=== PATIENT | male | born 1925 | race Caucasian/White ===

== ENCOUNTER 2017-06-05 18:45 | Emergency (ER) | payer MEDICARE, BC ==
--- NOTE | 2017-06-05 19:34 | ER Document Report ---
ED General - General Chief Complaint: Fall Stated Complaint: WEAKNESS Time Seen by Provider: 06/05/17 19:22 Mode of Arrival: Medic Information source: Patient, Emergency Med Personnel - HPI Onset: Yesterday Onset/Duration: Gradual Quality of pain: No pain Associated symptoms: Chills - 3 DAYS AGO, Weakness, Other - FELL TODAY (WHILE WALKING). denies: Chest pain, Productive cough, Diarrhea, Fever, Nausea, Vomiting, Shortness of breath Exacerbated by: Denies Relieved by: Denies Similar symptoms previously: No Recently seen / treated by doctor: No - Related Data Allergies/Adverse Reactions: sulfamethoxazole [From ] Allergy (Verified 06/05/17 19:09) trimethoprim [From ] Allergy (Verified 06/05/17 19:09) Past Medical History - General Information source: Patient - Social History Smoking Status: Unknown if Ever Smoked Cigarette use (# per day): No Chew tobacco use (# tins/day): No Frequency of alcohol use: None Drug Abuse: None Lives with: Family Family History: Reviewed & Not Pertinent Patient has suicidal ideation: No Patient has homicidal ideation: No - Past Medical History Cardiac Medical History: Reports: Hx Hypercholesterolemia, Hx Hypertension Denies: Hx Heart Attack Pulmonary Medical History: Denies: Hx Asthma Neurological Medical History: Denies: Hx Cerebrovascular Accident, Hx Seizures Endocrine Medical History: Reports: None Renal/ Medical History: Reports: Hx Benign Prostatic Hyperplasia Malignancy Medical History: Reports None GI Medical History: Reports: None. Denies: Hx Hepatitis, Hx Hiatal Hernia, Hx Ulcer Musculoskeltal Medical History: Reports None Psychiatric Medical History: Reports: None Infectious Medical History: Denies: Hx Hepatitis Past Surgical History: Denies: Hx Open Heart Surgery, Hx Pacemaker Review of Systems - Review of Systems Constitutional: Chills, Weakness EENT: No symptoms reported Cardiovascular: No symptoms reported. denies: Chest pain, Palpitations, Heart racing, Dyspnea, Syncope Respiratory: No symptoms reported. denies: Short of breath Gastrointestinal: No symptoms reported. denies: Diarrhea, Nausea, Constipation , Poor appetite Genitourinary: No symptoms reported Musculoskeletal: No symptoms reported Skin: No symptoms reported Neurological/Psychological: See HPI Physical Exam - Vital signs Vitals: Resp BP Pulse Ox 18 169/96 H 96 06/05/17 19:54 06/05/17 19:54 06/05/17 19:54 Interpretation: Hypertensive. No: Tachycardic, Hypoxic, Tachypneic, Febrile - General General appearance: Appears well, Alert In distress: None - HEENT Head: Normocephalic Eyes: Normal. No: Pale conjunctiva, Periorbital ecchymosis Conjunctiva: Normal Pupils: PERRL Anterior chamber: Normal Ears: Normal Nasal: Normal Mouth/Lips: Normal Mucous membranes: Normal Pharynx: Normal Neck: Normal, Supple - Respiratory Respiratory status: No respiratory distress Breath sounds: Rales - FEW, LLL. No: Rhonchi, Wheezing - Cardiovascular Rhythm: Regular Murmur: Yes Systolic murmur grade 1-6: 1 - Abdominal Inspection: Normal Distension: No distension Bowel sounds: Normal - Back Back: Normal, Nontender - Extremities General upper extremity: Normal inspection General lower extremity: Normal inspection, Edema - TRACE BILAT. - Neurological Neuro grossly intact: Yes Cognition: Normal Orientation: AAOx4 - Psychological Associated symptoms: Normal affect, Normal mood - Skin Skin Temperature: Warm Skin Moisture: Dry Skin Color: Normal Skin Turgor: Elastic Course - Re-evaluation Re-evalutation: 06/05/17 21:23 Patient is subjectively unchanged. Denies any particular complaint at present time. Results of laboratory and radiographic studies discussed. Says he is under the care of Dr. Harmon in [place] for care of his kidneys. He is encouraged to increase his fluid intake and follow-up with his primary care provider and with Dr. Harmon. - Vital Signs Vital signs: Temp Pulse Resp BP Pulse Ox 23 H 160/68 H 98 06/05/17 20:01 06/05/17 20:01 06/05/17 20:01 - Laboratory Result Diagrams: 06/05/17 20:14 06/05/17 20:14 Laboratory results interpreted by me: 06/05/17 06/05/17 06/05/17 20:14 20:14 20:14 RBC 3.57 L Hgb 12.0 L Hct 35.7 L MCV 100 H MCH 33.6 H Plt Count 104 L Seg Neutrophils % 82.9 H Lymphocytes % 6.4 L BUN 50 H Creatinine 2.28 H Est GFR ( Amer) 33 L Est GFR (Non-Af Amer) 27 L Creatine Kinase 37 L NT-Pro-B Natriuret Pep 1690 H Albumin 3.1 L - EKG Interpretation by Me EKG shows normal: [place], Intervals. abnormal: Sinus rhythm, QRS Complexes, ST-T Waves - REPOL. ABNORMALITY Rhythm: A.Fib Voltage: Consistant with [facility] Discharge - Discharge Clinical Impression: Chronic renal insufficiency, stage III (moderate) Anemia Qualifiers: Anemia type: unspecified type Qualified Code(s): D64.9 - Anemia, unspecified Condition: Stable Disposition: HOME, SELF-CARE Instructions: Anemia ([facility]) Additional Instructions: CONTINUE YOUR USUAL MEDS. INCREASE YOUR FLUID INTAKE. YOU SHOULD DRINK AT LEAST 32 OUNCES (ONE QUART) OF WATER DURING EACH 24-HOUR DAY. FOLLOW UP WITH YOUR PRIMARY CARE PROVIDER IN 2-3 DAYS, CALL TOMORROW (MONDAY) FOR APPOINTMENT. RETURN TO [facility] IF YOU GET WORSE IN ANY WAY.
--- NOTE | 2017-06-05 20:02 | RADIOLOGY REPORT (SQ) ---
EXAM DESCRIPTION: CHEST SINGLE VIEW COMPLETED DATE/TIME: 06/05/2017 7:49 pm REASON FOR STUDY: WEAKNESS COMPARISON: None. EXAM PARAMETERS: NUMBER OF VIEWS: One view. TECHNIQUE: Single frontal radiographic view of the chest acquired. RADIATION DOSE: NA LIMITATIONS: None. FINDINGS: LUNGS AND PLEURA: No opacities, masses or pneumothorax. No pleural effusion. MEDIASTINUM AND HILAR STRUCTURES: No masses. Contour normal. HEART AND VASCULAR STRUCTURES: Cardiac silhouette is at the upper limits of normal in size. A tortuo us thoracic aorta is seen. BONES: No acute findings. HARDWARE: Dual chamber transvenous pacemaker is identified in position. OTHER: Some elevation of the left hemidiaphragm is seen. IMPRESSION: NO ACUTE RADIOGRAPHIC FINDING IN THE CHEST. TECHNICAL DOCUMENTATION: JOB ID: [id number]
[2017-06-05 20:31] LABS: ABSOLUTE LYMPHOCYTES (AUTO) 0.5 10^3/uL (0.5-4.7); ABSOLUTE MONOCYTES (AUTO) 0.9 10^3/uL (0.1-1.4); ABSOLUTE NEUT (AUTO) 7.1 10^3/uL (1.7-8.2); BASOPHILS % (AUTO) 0.2 % (0-2); EOSINOPHILS % (AUTO) 0.2 % (0-6); HEMATOCRIT 35.7 % (37.9-51.0); HGB HCT DIFFERENCE 0.3; LYMPHOCYTES % (AUTO) 6.4 % (13-45); MEAN CORPUSCULAR HEMOGLOBIN 33.6 pg (27.0-33.4); MEAN CORPUSCULAR HGB CONC 33.6 g/dL (32.0-36.0); MEAN CORPUSCULAR VOLUME 100 fl (80-97); MONOCYTES % (AUTO) 10.3 % (3-13); RED BLOOD COUNT 3.57 10^6/uL (4.35-5.55); RED CELL DISTRIBUTION WIDTH 13.5 % (11.5-14.0); SEGMENTED NEUTROPHILS % (AUTO) 82.9 % (42-78); WHITE BLOOD COUNT 8.5 10^3/uL (4.0-10.5)
[2017-06-05 20:34] LABS: APPEARANCE,URINE CLEAR; BILIRUBIN,URINE NEGATIVE (NEGATIVE); GLUCOSE, URINE NEGATIVE (NEGATIVE); KETONES,URINE NEGATIVE (NEGATIVE); LEUKOCYTE ESTERASE,URINE NEGATIVE (NEGATIVE); NITRITE,URINE NEGATIVE (NEGATIVE); PROTEIN,URINE NEGATIVE (NEGATIVE); URINE SPECIFIC GRAVITY 1.014; UROBILINOGEN,URINE NEGATIVE mg/dL (<2.0)
[2017-06-05 20:51] LABS: ALANINE AMINOTRANSFERASE 23 U/L (21-72); ALBUMIN 3.1 g/dL (3.5-5.0); ALKALINE PHOSPHATASE 74 U/L (38-126); ANION GAP 9 (5-19); ASPARTATE AMINO TRANSFERASE 19 U/L (17-59); BILIRUBIN,DIRECT 0.3 mg/dL (0.0-0.4); BILIRUBIN,TOTAL 0.6 mg/dL (0.2-1.3); BLOOD UREA NITROGEN 50 mg/dL (7-20); CALCIUM 8.7 mg/dL (8.4-10.2); CARBON DIOXIDE 25 mmol/L (22-30); CHLORIDE 105 mmol/L (98-107); CREATINE KINASE 37 U/L (55-170); CREATININE RESULT 2.28 mg/dL (0.52-1.25); GLUCOSE 107 mg/dL (75-110); POTASSIUM 4.1 mmol/L (3.6-5.0); SODIUM 139.3 mmol/L (137-145); TOTAL PROTEIN 6.3 g/dL (6.3-8.2)
[2017-06-05 21:01] LABS: CREATINE KINASE MB 0.7 ng/mL (<4.55); TROPONIN I 0.028 ng/mL
[2017-06-05 22:35] VITALS: BP 163/67
--- NOTE | 2017-06-06 08:00 | EKG REPORT ---
SEVERITY:- ABNORMAL ECG - ATRIAL FIBRILLATION [facility] WITH SECONDARY REPOLARIZATION ABNORMALITY : Confirmed by: Yg Parra MD 06-Jun-2017 07:59:15
== END 2017-06-05 22:16 | disposition home or self-care (01) ==
LOC: ER 18:45
DX: N18.3 Chronic kidney disease, stage 3 (moderate) (principal); D64.9 Anemia, unspecified; R53.1 Weakness; W19.XXXA Unspecified fall, initial encounter
CPT/HCPCS: 36415; 71010; 80053; 81001; 82550; 82553; 83880; 84484; 85025; 93005; 93010; 99285

== ENCOUNTER 2017-06-30 14:54 | Inpatient (IN) | payer MEDICARE, BC ==
--- NOTE | 2017-06-30 15:51 | ER Document Report ---
ED General - General Chief Complaint: Weakness Stated Complaint: WEAKNESS Time Seen by Provider: 06/30/17 15:41 Notes: Patient brought in from home by EMS. Reportedly week and running a fever for the past week. Patient says he is fallen about 4 or 5 times during this past week. He was unable to get up and needed assistance by his to get up from the fall this morning. Patient denies nausea vomiting or diarrhea. Denies urinary tract symptoms except for decreased urination. Does have a prostate condition for which he sees a urologist and is on Flomax. Denies any chest pain. Has had a cough with some phlegm produced. Fever off and on during this past week. - Related Data Allergies/Adverse Reactions: sulfamethoxazole [From ] Allergy (Verified 06/05/17 19:09) trimethoprim [From Junra] Allergy (Verified 06/05/17 19:09) Home Medications: Current Home Medications Brimonidine Tartrate [Alphagan P] 1 drop OU Q8 06/30/17 [History] Clopidogrel Bisulfate [Plavix 75 mg Tablet] 75 mg PO DAILY 06/30/17 [History] Fluticasone Propionate [Flonase Nasal [place] 50 Mcg/[place] 16 gm] 1 spray NASL Q12 06/30/17 [History] Furosemide [Lasix 20 mg Tablet] 20 mg PO DAILY 06/30/17 [History] Losartan Potassium [Cozaar 50 mg Tablet] 50 mg PO Q12 06/30/17 [History] Sotalol HCl [Betapace 80 mg Tablet] 80 mg PO DAILY 06/30/17 [History] Tamsulosin HCl [Flomax 0.4 mg Cap.sr] 0.8 mg PO DAILY 06/30/17 [History] Past Medical History - Social History Smoking Status: Never Smoker Chew tobacco use (# tins/day): No Frequency of alcohol use: None Drug Abuse: None Family History: Reviewed & Not Pertinent - Past Medical History Cardiac Medical History: Reports: Hx Hypercholesterolemia, Hx Hypertension Denies: Hx Heart Attack Pulmonary Medical History: Denies: Hx Asthma, Hx COPD Neurological Medical History: Denies: Hx Cerebrovascular Accident, Hx Seizures Renal/ Medical History: Reports: Hx Benign Prostatic Hyperplasia GI Medical History: Denies: Hx Hepatitis, Hx Hiatal Hernia, Hx Ulcer Infectious Medical History: Denies: Hx Hepatitis Past Surgical History: Reports: Hx Orthopedic Surgery - Left TKR Review of Systems - Review of Systems Notes: REVIEW OF SYSTEMS: CONSTITUTIONAL : See HPI regarding fever. EENT: Denies eye, ear, nose or mouth or throat pain or other symptoms. CARDIOVASCULAR: Denies chest pain. RESPIRATORY: Has a cough and some chest congestion. Denies shortness of breath , however. GASTROINTESTINAL: Denies abdominal pain or nausea, vomiting, or diarrhea. GENITOURINARY: Denies difficulty or painful urinating, urinary frequency, blood in urine. Only comments that his urine output is decreased recently. MUSCULOSKELETAL: Denies back or neck pain. Denies joint pain or swelling. SKIN: Denies rash or skin lesions. NEUROLOGICAL: Denies LOC or altered mental status. Denies headache. Denies sensory loss or motor deficits. ALL OTHER SYSTEMS REVIEWED AND NEGATIVE. Physical Exam - Vital signs Vitals: Resp BP Pulse Ox 23 H 129/60 H 95 06/30/17 15:12 06/30/17 15:12 06/30/17 15:12 Interpretation: Tachycardic, Febrile - Notes Notes: PHYSICAL EXAMINATION: GENERAL: Well-appearing, in no acute distress. Answers questions appropriately. HEAD: Atraumatic, normocephalic. ENT: oropharynx clear without exudates. Moist mucous membranes. NECK: Normal range of motion, supple. LUNGS: Breath sounds clear and equal bilaterally. HEART: Regular rate and rhythm without murmurs. ABDOMEN: Soft, nontender. No guarding or rebound. BACK: No tenderness throughout entire back. EXTREMITIES: Normal range of motion without pain. Negative Homans bilaterally. NEUROLOGICAL: Normal speech, normal gait. Normal sensory, motor, and reflex exams. Awake, alert, and oriented x3. Cranial nerves normal. PSYCH: Normal mood, normal affect. SKIN: Warm, dry, no rashes. Course - Re-evaluation Re-evalutation: 06/30/17 19:37 Patient's white count is normal, but he has a significant shift with over 90% segs and 7 bands. Chest x-ray is normal. Urinalysis does not look like an infection. Patient has no other likely sites as sources of infection. Discussed with Dr. Coyne who would admit the patient for rule out sepsis. - Vital Signs Vital signs: Temp Pulse Resp BP Pulse Ox 99.9 F 23 H 129/60 H 95 06/30/17 15:30 06/30/17 15:12 06/30/17 15:12 06/30/17 15:12 - Laboratory Result Diagrams: 06/30/17 17:14 06/30/17 17:15 Laboratory results interpreted by me: 06/30/17 06/30/17 06/30/17 15:58 15:58 17:14 RBC 3.17 L Hgb 10.5 L Hct 30.7 L Plt Count 134 L Seg Neuts % (Manual) 85 H Band Neutrophils % 7 H Lymphocytes % (Manual) 2 L Abs Neuts (Manual) 8.4 H Abs Lymphs (Manual) 0.2 L VBG pH 7.46 H VBG pCO2 31.6 L Potassium BUN Creatinine Est GFR ( Amer) Est GFR (Non-Af Amer) Glucose Total Protein Albumin Urine Blood SMALL H 06/30/17 17:15 RBC Hgb Hct Plt Count Seg Neuts % (Manual) Band Neutrophils % Lymphocytes % (Manual) Abs Neuts (Manual) Abs Lymphs (Manual) VBG pH VBG pCO2 Potassium 3.4 L BUN 29 H Creatinine 1.90 H Est GFR ( Amer) 41 L Est GFR (Non-Af Amer) 34 L Glucose 139 H Total Protein 6.1 L Albumin 2.8 L Urine Blood Discharge - Discharge Clinical Impression: Fever, Bandemia without diagnosis of specific infection Condition: Stable Disposition: ADMITTED OBSERVATION Admitting Provider: Hospitalist Unit Admitted: Telemetry
[2017-06-30 16:30] LABS: APPEARANCE,URINE CLEAR; BILIRUBIN,URINE NEGATIVE (NEGATIVE); GLUCOSE, URINE NEGATIVE (NEGATIVE); KETONES,URINE NEGATIVE (NEGATIVE); LEUKOCYTE ESTERASE,URINE NEGATIVE (NEGATIVE); NITRITE,URINE NEGATIVE (NEGATIVE); PROTEIN,URINE NEGATIVE (NEGATIVE); URINE SPECIFIC GRAVITY 1.008; UROBILINOGEN,URINE NEGATIVE mg/dL (<2.0)
[2017-06-30 16:32] LABS: VENOUS BLOOD BASE EXCESS -1.5 mmol/L; VENOUS BLOOD PCO2 31.6 mmHg (35-63); VENOUS BLOOD PH 7.46 (7.30-7.42)
--- NOTE | 2017-06-30 16:46 | RADIOLOGY REPORT (SQ) ---
EXAM DESCRIPTION: CHEST PA/LAT COMPLETED DATE/TIME: 06/30/2017 4:37 pm REASON FOR STUDY: Cough and fever. COMPARISON: 06/05/2017. EXAM PARAMETERS: NUMBER OF VIEWS: two views TECHNIQUE: Digital Frontal and Lateral radiographic views of the chest acquired. RADIATION DOSE: NA LIMITATIONS: none FINDINGS: LUNGS AND PLEURA: No opacities, masses or pneumothorax. No pleural effusion. MEDIASTINUM AND HILAR STRUCTURES: No masses or contour abnormalities. HEART AND VASCULAR STRUCTURES: Heart normal size. No evidence for failure. BONES: No acute findings. Degenerative changes in the spine. HARDWARE: Pacemaker. OTHER: No other significant finding. IMPRESSION: NO SIGNIFICANT RADIOGRAPHIC FINDING IN THE CHEST. TECHNICAL DOCUMENTATION: JOB ID: [id number] [employer]- All Rights Reserved
[2017-06-30 17:48] LABS: PROTHROMBIN TIME 14.8 SEC (11.4-15.4)
[2017-06-30 17:50] LABS: HEMATOCRIT 30.7 % (37.9-51.0); HEMOGLOBIN 10.5 g/dL (13.5-17.0); HGB HCT DIFFERENCE 0.8; MEAN CORPUSCULAR HEMOGLOBIN 33.1 pg (27.0-33.4); MEAN CORPUSCULAR HGB CONC 34.2 g/dL (32.0-36.0); MEAN CORPUSCULAR VOLUME 97 fl (80-97); RED BLOOD COUNT 3.17 10^6/uL (4.35-5.55); RED CELL DISTRIBUTION WIDTH 12.8 % (11.5-14.0); WHITE BLOOD COUNT 9.1 10^3/uL (4.0-10.5)
[2017-06-30 17:59] LABS: ALANINE AMINOTRANSFERASE 21 U/L (21-72); ALBUMIN 2.8 g/dL (3.5-5.0); ALKALINE PHOSPHATASE 76 U/L (38-126); ANION GAP 10 (5-19); ASPARTATE AMINO TRANSFERASE 17 U/L (17-59); BILIRUBIN,DIRECT 0.4 mg/dL (0.0-0.4); BILIRUBIN,TOTAL 0.6 mg/dL (0.2-1.3); BLOOD UREA NITROGEN 29 mg/dL (7-20); CALCIUM 8.8 mg/dL (8.4-10.2); CARBON DIOXIDE 24 mmol/L (22-30); CHLORIDE 106 mmol/L (98-107); GLUCOSE 139 mg/dL (75-110); POTASSIUM 3.4 mmol/L (3.6-5.0); SODIUM 140.3 mmol/L (137-145); TOTAL PROTEIN 6.1 g/dL (6.3-8.2)
[2017-06-30 18:16] LABS: BAND NEUTROPHILS % (MANUAL) 7 % (3-5); BASOPHILS % (MANUAL) 0 % (0-2); EOSINOPHILS % (MANUAL) 0 % (0-6); HYPOCHROMASIA SLIGHT; LYMPHOCYTES % (MANUAL) 2 % (13-45); POLYCHROMASIA SLIGHT; TOTAL CELLS COUNTED 100; TOXIC GRANULATION SLIGHT
[2017-06-30 18:17] LABS: OVALOCYTES SLIGHT; PLATELET CLUMPS PRESENT
--- NOTE | 2017-06-30 19:33 | EKG REPORT ---
SEVERITY:- BORDERLINE ECG - SINUS RHYTHM BORDERLINE PROLONGED QT INTERVAL : Confirmed by: Yg Parra MD 30-Jun-2017 19:32:33
[2017-06-30] MEDS ORDERED: CEFTRIAXONE 1 GM/D5W RTU 1 GM/50 ML RTUPB IV ONE (19:36)
--- NOTE | 2017-06-30 20:15 | RADIOLOGY REPORT (SQ) ---
EXAM DESCRIPTION: CT HEAD WITHOUT COMPLETED DATE/TIME: 06/30/2017 7:56 pm REASON FOR STUDY: Falling episodes. COMPARISON: None. TECHNIQUE: Axial images acquired through the brain without intravenous contrast. Images reviewed wi th bone, brain and subdural windows. Images stored on PACS. All CT scanners at this facility use dose modulation, iterative reconstruction, and/or weight based d osing when appropriate to reduce radiation dose to as low as reasonably achievable (ALARA). [facility]: Dose Right [facility]: CareDose [facility]: Dose Right [facility]: Teradose 4D [facility]: Smart [place] RADIATION DOSE: Up-to-date CT equipment and radiation dose reduction techniques were employed. CTDIv ol: 64.6 mGy. DLP: 1163 mGy-cm. mGy. LIMITATIONS: None. FINDINGS: VENTRICLES: Normal size and contour. CEREBRUM: No masses. No hemorrhage. No midline shift. No evidence for acute infarction. Normal gra y/white matter differentiation. No areas of low density in the white matter. CEREBELLUM: No masses. No hemorrhage. No alteration of density. No evidence for acute infarction. EXTRAAXIAL SPACES: No fluid collections. No masses. ORBITS AND GLOBE: No intra- or extraconal masses. Normal contour of globe without masses. CALVARIUM: No fracture. PARANASAL SINUSES: No fluid or mucosal thickening. SOFT TISSUES: No mass or hematoma. OTHER: No other significant finding. IMPRESSION: No acute intracranial findings. COMMENT: Quality ID # [id number]: Final reports with documentation of one or more dose reduction techniques (e.g., Automated exposure control, adjustment of the mA and/or kV according to patient size, use of iterative reconstruction technique) TECHNICAL DOCUMENTATION: JOB ID: [id number]- All Rights Reserved
[2017-06-30] MEDS ORDERED: PHARMACY COMMUNICATION ORDER MC SCH (21:00)
[2017-06-30 21:07] LABS: ADD ON TESTING BLD IN LAB ACKNOWLEDGE
[2017-06-30] MEDS ORDERED: PROMETHAZINE HCL 25 MG TABLET PO PRN (21:09)
[2017-06-30 21:32] LABS: MAGNESIUM 1.9 mg/dL (1.6-2.3)
--- NOTE | 2017-06-30 21:40 | PDOC H&P ---
History of Present Illness Admission Date/PCP: 06/30/17 19:45 Patient complains of: Fever, falls, generalized weakness History of Present Illness: ALY PENG is a 89 year old male with underlying prostatic hypertrophy, hypertension, atrial fibrillation, chronic kidney disease, arthritis, glaucoma, partial hearing loss, status post permanent pacemaker implant, who presents to the emergency room for evaluation of approximately a one-week history of intermittent subjective fever and shaking chills. He has fallen a number of times, without loss of consciousness. States he has struck his head at least one time. Simply becomes so weak he cannot stand up. Had to be assisted off the floor by the morning of admission. Chronic slightly productive cough, without recent change. No nausea vomiting, diarrhea or dysuria. Denies any "sore spot" anywhere on his body, but when physical exam revealed some mild inflammation warmth and tenderness along the dorsum of his right foot he does state over the last several days he has had some mild discomfort in the foot. Apparently this does happen on occasion in terms of increased discomfort at the site. Denies any trauma to the foot or insect bite. No sick contacts. Patient has been discussed with emergency room physician who evaluated the patient. Dictation via voice recognition software. Laboratory results are listed in [employer] and are reviewed. X-ray summary results are listed below, with full report(s) reviewed. . EKG reviewed and compared to prior tracing from June 05 of this year. Social history/personal habits: . Lives with . Retired. Has children. No use of alcohol tobacco or illicit drugs. Allergies/adverse reactions are listed in [employer] and are reviewed. Home medications initially autopopulated into [employer] may not accurately reflect patient's true medications, dosages, and/or frequencies. technical coordinator has reconciled medications. REVIEW OF SYSTEMS: Constitutional: See history and present illness. Eyes: Wears glasses. ENT: No swallowing problems or complaints. Partial hearing loss. Pulmonary: See history and present illness. Cardiovascular: No current complaints, including chest pain. Gastrointestinal: No current complaints, including nausea or vomiting. Skin: No current complaints, including rashes. Hematologic: Easy bruising. Neurologic: See history and present illness. Musculoskeletal: Joint pain from arthritis. See history and present illness. Psychiatric: Denies anxiety or depression. Endocrine: No current complaints, including polyuria. Genitourinary: No current complaints, including dysuria. PHYSICAL EXAMINATION: Neither height nor weight are recorded on the chart. Blood pressure 160/70. Pulse 63 and regular. 99% saturation on room air. Respirations are 19 and unlabored. Temperature 97.4. Temperature 99.9 initially in the emergency room. Well-nourished well-developed elderly male appearing approximately his stated age. Pleasant awake alert and cooperative. Mildly anxious, without agitation. Skin is warm and dry. No grossly obvious evidence of rash in areas of skin examined. No subcutaneous nodules palpated. ENT: Perhaps mildly hard of hearing to normal conversation. Tongue midline on protrusion pink and slightly moist. Eyes: No scleral icterus. Pupils equal and reactive to light at 4 mm. [place] conjunctivae. No raccoon eyes. Neck is supple and nontender to gentle active range of motion and palpation. Midline trachea. No palpable thyroid nodule mass enlargement or tenderness. Lymphatic: No palpable cervical or clavicular nodes. Neck and lymphatic exams limited by patient body habitus. Psychiatric: Reasonable insight into acute and chronic medical issues. Oriented to time location and why here. Sometimes takes a few seconds to gather his thoughts, so to speak, before answering questions, but does seem to answer basic questions appropriately. Lungs: Auscultation reveals clear and equal breath sounds bilaterally. No use of accessory respiratory muscles. Cardiovascular: Heart regular rate and rhythm, without gallop murmur or rub. No carotid or abdominal aortic bruits. No left ankle or pedal edema. Faintly palpable dorsalis pedis pulses. No right ankle edema. Scant soft tissue swelling on the dorsum of the right foot. Not overly remarkable. Abdomen:soft slightly distended nontender with positive bowel sounds. Unable to adequately evaluate abdomen for masses or organomegaly due to distention. Extremities: Feet are warm and dry. No calf tenderness to compression. No grossly obvious visual evidence of calf swelling. Gentle manipulation of lower extremities fails to reveal any obvious evidence of injury or instability to knees hips or ankles. Patient has very subtle inflammation warmth and slight tenderness on palpation on the dorsum of the right foot. No crepitus fluctuance or expressible discharge. No obvious skin entrance site. Neurologic: Moves upper extremities grossly normally. Patellar reflexes absent. Absent Babinski. Light touch is intact at feet. Dorsiflexion and plantarflexion of feet 5 / 5 and symmetric. Past Medical History Cardiac Medical History: Reports: Atrial Fibrillation, Hypertension Denies: Congestive Heart Failure, Coronary Artery Disease, DVT, Myocardial Infarction, Hyperlipidema, Pulmonary Embolism Pulmonary Medical History: Denies: Asthma, Chronic Obstructive Pulmonary Disease (COPD), Sleep Apnea EENT Medical History: Reports: Eyes - Glaucoma; wears glasses, Ears - Partial hearing loss Denies: Throat Neurological Medical History: Denies: Hemorrhagic CVA, Ischemic CVA, Seizures Endocrine Medical History: Denies: Diabetes Mellitus Type 1, Diabetes Mellitus Type 2, Hyperthyroidism, Hypothyroidism Renal/ Medical History: Reports: Chronic Kidney Disease GI Medical History: Denies: Cirrhosis, Gastroesophageal Reflux Disease, Hepatitis, Hiatal Hernia , Peptic Ulcer Disease Musculoskeltal Medical History: Reports: Arthritis Skin Medical History: Reports: None Psychiatric Medical History: Denies: Alcohol Dependency, Depression, General Anxiety Disorder, Substance Abuse, Tobacco Dependency Hematology: Denies: Anemia, Sickle Cell Disease Infectious Medical History: Denies: Hepatitis B, Hepatitis C, Methicillin-Resistant Staph Aureus Past Surgical History Past Surgical History: Reports: Orthopedic Surgery - Left TKR, Pacemaker, Tonsillectomy Social History Information Source: Patient, Emergency Med Personnel, [facility] Records Lives with: Spouse/Significant other Smoking Status: Unknown if Ever Smoked Frequency of Alcohol Use: None Drugs: None - Advance Directive Resuscitation Status: Full Code Surrogate healthcare decision maker:: Uncertain at this point in time Family History Family History: Reviewed & Not Pertinent Parental Family History Reviewed: Yes - father old age; mother of [facility] Children Family History Reviewed: Yes - healthy Sibling(s) Family History Reviewed.: Yes - Medication/Allergy Home Medications: Brimonidine Tartrate [Alphagan P] 1 drop OU Q8 06/30/17 Clopidogrel Bisulfate [Plavix 75 mg Tablet] 75 mg PO DAILY 06/30/17 Fluticasone Propionate [Flonase Nasal [place] 50 Mcg/[place] 16 gm] 1 spray NASL Q12 06/30/17 Furosemide [Lasix 20 mg Tablet] 20 mg PO DAILY 06/30/17 Losartan Potassium [Cozaar 50 mg Tablet] 50 mg PO Q12 06/30/17 Sotalol HCl [Betapace 80 mg Tablet] 80 mg PO DAILY 06/30/17 Tamsulosin HCl [Flomax 0.4 mg Cap.sr] 0.8 mg PO DAILY 06/30/17 Allergies/Adverse Reactions: sulfamethoxazole [From ] Allergy (Verified 06/05/17 19:09) trimethoprim [From Septra] Allergy (Verified 06/05/17 19:09) Physical Exam Vital Signs: Temp Pulse Resp BP Pulse Ox 97.7 F 74 17 130/62 H 99 06/30/17 20:55 06/30/17 20:55 06/30/17 20:52 06/30/17 20:52 06/30/17 20:55 Results Impressions: Chest X-Ray 06/30/17 15:43 IMPRESSION: NO SIGNIFICANT RADIOGRAPHIC FINDING IN THE CHEST. Head CT 06/30/17 19:37 IMPRESSION: No acute intracranial findings. Assessment & Plan - Diagnosis (1) Falls Qualifiers: Encounter type: initial encounter Qualified Code(s): W19.XXXA - Unspecified fall, initial encounter Is this a current diagnosis for this admission?: Yes Plan: Orthostatic vital signs every 4 hours while awake, starting in the morning. Strongly encouraged patient not to get out of bed without notifying staff to avoid a fall with injury. Physical therapy consult. (2) General weakness Is this a current diagnosis for this admission?: Yes (3) HTN (hypertension) Qualifiers: Hypertension type: essential hypertension Qualified Code(s): I10 - Essential (primary) hypertension Is this a current diagnosis for this admission?: Yes Plan: Resume home medications as appropriate once these have been determined and reviewed. (4) CKD (chronic kidney disease) Qualifiers: Chronic kidney disease stage: stage 3 (moderate) Qualified Code(s): N18.3 - Chronic kidney disease, stage 3 (moderate) Is this a current diagnosis for this admission?: Yes (5) Anemia Qualifiers: Anemia type: unspecified type Qualified Code(s): D64.9 - Anemia, unspecified Is this a current diagnosis for this admission?: Yes Plan: Follow-up CBC with differential. No need for transfusion at present time. (6) Thrombocytopenia Is this a current diagnosis for this admission?: Yes (7) Hypokalemia Is this a current diagnosis for this admission?: Yes Plan: Potassium replacement. Follow-up chemistry. (8) Cellulitis of right foot Is this a current diagnosis for this admission?: Yes Plan: Ancef. Blood cultures have been drawn. Knee high SCDs for DVT prophylaxis, along with subcutaneous heparin. Impression and plans were discussed with patient, who concurs. Time spent in evaluation and management of patient: 73 minutes. - Time Time Spent: Greater than 70 Minutes Medications reviewed and adjusted accordingly: Yes Anticipated discharge: Home Within: within 48 hours
[2017-06-30] MEDS ORDERED: (PENDING PHARMACY ID) (Brimonidine Tartrate [Alphagan P] 1 DROP) OU SCH (22:00)
[2017-06-30] MEDS ORDERED: POTASSIUM CHLORIDE 20 MEQ/15 ML UDCUP PO ONE (22:15)
[2017-06-30] MEDS: CEFAZOLIN 1 GM/D5W RTU 1 GM/50 ML RTUPB IV SCH (23:50)
[2017-06-30] MEDS: LOSARTAN POTASSIUM 50 MG TABLET PO SCH (23:51)
[2017-06-30] MEDS: FLUTICASONE NASAL SPRAY 50 MCG/SPRY 120 SPRAY/16 GM NASL SCH (23:53)
[2017-07-01] MEDS: CEFAZOLIN 1 GM/D5W RTU 1 GM/50 ML RTUPB IV SCH ×3 (06:14→21:51)
[2017-07-01 06:33] LABS: HEMATOCRIT 30.2 % (37.9-51.0); HEMOGLOBIN 10.3 g/dL (13.5-17.0); HGB HCT DIFFERENCE 0.7; MEAN CORPUSCULAR HEMOGLOBIN 33.3 pg (27.0-33.4); MEAN CORPUSCULAR HGB CONC 34.2 g/dL (32.0-36.0); MEAN CORPUSCULAR VOLUME 98 fl (80-97); RED CELL DISTRIBUTION WIDTH 12.8 % (11.5-14.0); WHITE BLOOD COUNT 3.3 10^3/uL (4.0-10.5)
[2017-07-01 06:36] LABS: ANION GAP 8 (5-19); BLOOD UREA NITROGEN 31 mg/dL (7-20); CALCIUM 8.8 mg/dL (8.4-10.2); CARBON DIOXIDE 24 mmol/L (22-30); CHLORIDE 108 mmol/L (98-107); CREATININE RESULT 1.69 mg/dL (0.52-1.25); GLUCOSE 91 mg/dL (75-110); POTASSIUM 4.1 mmol/L (3.6-5.0); SODIUM 140.2 mmol/L (137-145)
[2017-07-01 06:55] LABS: BAND NEUTROPHILS % (MANUAL) 1 % (3-5); BASOPHILS % (MANUAL) 0 % (0-2); EOSINOPHILS % (MANUAL) 0 % (0-6); LYMPHOCYTES % (MANUAL) 20 % (13-45); RBC MORPHOLOGY COMMENT NORMO-CYTIC/CHROMIC; TOTAL CELLS COUNTED 100
[2017-07-01] MEDS ORDERED: NORMAL SALINE 1000 ML 1,000 ML IV PRN (09:06)
--- NOTE | 2017-07-01 09:32 | PROGRESS NOTE E ---
Progress Note NAME: ALY PENG : 1925 AGE: 89Y DATE: 07/01/2017 ROOM: 427 SUBJECTIVE: Patient is currently sitting up in bed. He states that he still feels weak and dizzy whenever he stands. The patient denies any nausea or vomiting. He does admit to having a poor appetite. The patient has had no further fevers or chills since admission. No reported episodes of vomiting nor diarrhea. The patient has been afebrile. His blood pressures have been in a good range and the patient does not voice any other concerns at this time. REVIEW OF SYSTEMS: The rest of review of systems are negative. MEDICATIONS: Medications have been reviewed. OBJECTIVE: MEDICATIONS: Medications have been reviewed. OBJECTIVE: GENERAL: The patient is an 89-year-old male who is awake, alert. He is oriented to person, place, time, and situation. He is verbal, conversational, and does not appear to be in any acute distress. VITAL SIGNS FOLLOWS: Temperature is 97.6, pulse 68, respirations 20, blood pressure is 141/55, oxygen saturation is 97% on room air. SKIN: Warm and dry. No rash. He is not diaphoretic. HEENT: Pupils equal, round and reactive to light and accommodation. Conjunctivae are pink. NECK: No JVP. CARDIOVASCULAR: Heart is regular. There is no murmur or rub. CHEST: Clear, symmetrical, and unlabored. ABDOMEN: Soft, nontender, and nondistended. BACK: No CVA tenderness or sacral edema. EXTREMITIES: No clubbing or cyanosis. The patient does have trace bilateral lower extremity pitting edema. The patient's right lower extremity does have mild warmth and erythema. PSYCHIATRIC: Appropriate affect, pleasant mood. DIAGNOSTICS: Lab values are as follows: Hematology obtained on 07/01/2017: WBC is *------*, hemoglobin is 10.3, hematocrit is 30.2, platelet count is 133,000. Chemistry obtained on 07/01/2017: Sodium 140, potassium 4.1, chloride 108, carbon dioxide 24, BUN 31, creatinine *------*, glucose 91, calcium 8.8. IMPRESSION AND PLAN: 1. CELLULITIS OF THE RIGHT LOWER EXTREMITY. Could be contributing to the patient's overall symptoms. Will continue antibiotic coverage and follow. 2. ACUTE RENAL FAILURE. May be due to infectious process or poor p.o. intake. The patient denies any history of having kidney disease. The patient's creatinine was 1.9 on admission. With hydration, it came down to 1.69. Will gently hydrate the patient overnight and follow. 3. HYPOKALEMIA. This is mild and was repleted. 4. MALNUTRITION. The patient's albumin is quite low at 2.8, further suggestive of the patient's poor p.o. intake. Will liberalize the patient's diet and follow. 5. PANCYTOPENIA. Relatively mild. Will watch this closely and repeat in the a.m. May be further evidence of infectious process. 6. BENIGN PROSTATIC HYPERPLASIA. Will continue the patient's Flomax. 7. HYPERTENSION. Will continue the patient's home medications, but hold ARB, given the patient's renal function. 8. ATRIAL FIBRILLATION. The patient is currently in sinus rhythm and rate-controlled. Will continue Sotalol. DISPOSITION: The patient is a DO NOT RESUSCITATE/DO NOT INTUBATE, as the patient expresses a desire for natural . Pending patient's symptomatology and diagnostic findings, will reevaluate in the a.m. Time spent on this followup, including assessment, plan, physical examination, patient education, and review of previous and current records, is 35 minutes. DICTATING PHYSICIAN: CYNTHIA GARDUNO NP [id number] PHY#: [id number] ID: [id number] JOB#: [id number] ACCT: [id number] cc: >
[2017-07-01] MEDS ORDERED: SOTALOL HCL 80 MG TABLET PO SCH (10:00)
[2017-07-01] MEDS: DOCUSATE SODIUM 100 MG CAPSULE PO SCH ×2 (12:21→18:03)
[2017-07-01] MEDS: CLOPIDOGREL BISULFATE 75 MG TABLET PO SCH (12:22)
[2017-07-01] MEDS: FLUTICASONE NASAL SPRAY 50 MCG/SPRY 120 SPRAY/16 GM NASL SCH ×2 (12:22→21:51)
[2017-07-01] MEDS: LOSARTAN POTASSIUM 50 MG TABLET PO SCH ×2 (12:22→21:51)
[2017-07-01] MEDS: TAMSULOSIN HCL 0.4 MG CAP.SR.24H PO SCH (18:03)
[2017-07-01] MEDS: ACETAMINOPHEN 325 MG TABLET PO PRN (23:38)
[2017-07-02 05:01] LABS: HEMATOCRIT 30.5 % (37.9-51.0); HEMOGLOBIN 10.5 g/dL (13.5-17.0); MEAN CORPUSCULAR HEMOGLOBIN 33.4 pg (27.0-33.4); MEAN CORPUSCULAR HGB CONC 34.5 g/dL (32.0-36.0); MEAN CORPUSCULAR VOLUME 97 fl (80-97); RED BLOOD COUNT 3.15 10^6/uL (4.35-5.55); RED CELL DISTRIBUTION WIDTH 12.8 % (11.5-14.0); WHITE BLOOD COUNT 4.9 10^3/uL (4.0-10.5)
[2017-07-02 05:18] LABS: ANION GAP 9 (5-19); BLOOD UREA NITROGEN 30 mg/dL (7-20); CALCIUM 8.5 mg/dL (8.4-10.2); CARBON DIOXIDE 22 mmol/L (22-30); CHLORIDE 105 mmol/L (98-107); CREATININE RESULT 1.45 mg/dL (0.52-1.25); GLUCOSE 108 mg/dL (75-110); MAGNESIUM 1.7 mg/dL (1.6-2.3); POTASSIUM 4.1 mmol/L (3.6-5.0)
[2017-07-02] MEDS: CEFAZOLIN 1 GM/D5W RTU 1 GM/50 ML RTUPB IV SCH (05:26)
[2017-07-02] MEDS: FLUTICASONE NASAL SPRAY 50 MCG/SPRY 120 SPRAY/16 GM NASL SCH ×2 (09:17→22:10)
[2017-07-02] MEDS: LOSARTAN POTASSIUM 50 MG TABLET PO SCH (09:17)
[2017-07-02] MEDS: DOCUSATE SODIUM 100 MG CAPSULE PO SCH ×2 (09:18→17:10)
[2017-07-02] MEDS: CLOPIDOGREL BISULFATE 75 MG TABLET PO SCH (09:18)
[2017-07-02] MEDS ORDERED: VANCOMYCIN HCL 0 MG in DEXTROSE 5%-WATER 250 ML IV NR (11:45)
[2017-07-02] MEDS ORDERED: AMLODIPINE BESYLATE 5 MG TABLET PO ONE (12:30)
--- NOTE | 2017-07-02 15:22 | PROGRESS NOTE E ---
Progress Note NAME: ALY PENG : 1925 AGE: 89Y DATE: 07/02/2017 ROOM: 321 SUBJECTIVE: The patient is out of bed to the bedside chair. He states that he does feel much better today in comparison to yesterday and his dizziness overall has improved. The patient denies any nausea, vomiting or diarrhea. No shortness of breath. No chest pain, no fever or chills. The patient has been afebrile. His blood pressures have been in a good range and the patient does not voice any other concerns at this time. BRIEF HISTORY: The patient is an 89-year-old male that came to the emergency department due to falls and weakness. The patient had evidence of a mild cellulitis of the right lower extremity; however, that has resolved but the patient has been noted to be bacteremic. The patient clinically is much improved. REVIEW OF SYSTEMS: The rest of review of systems are negative. MEDICATIONS: Medications have been reviewed. OBJECTIVE: GENERAL: The patient is an 89-year-old male who is awake, alert and oriented to person, place, time, and situation. He is verbal, conversational, and does not appear to be in any acute distress. VITAL SIGNS FOLLOWS: Temperature is 98.0, pulse 85, respirations 18, blood pressure is 135/66, oxygen saturation is 99% on room air. SKIN: Warm and dry. No rash, not diaphoretic. HEENT: Pupils equal, round and reactive to light and accommodation. Conjunctivae are pink. NECK: No JVP. CARDIOVASCULAR: Heart is regular. There is no murmur or rub. CHEST: Clear, symmetrical, and unlabored. ABDOMEN: Soft, nontender, and nondistended. BACK: No CVA tenderness or sacral edema. EXTREMITIES: No clubbing or cyanosis. The patient does have trace bilateral lower extremity edema. Redness has resolved. PSYCHIATRIC: Appropriate affect, pleasant mood. DIAGNOSTICS: Lab values are as follows: Hematology obtained on 07/02/2017: WBCs are 4.9, hemoglobin is 10.5, hematocrit is 30.5, platelet count is 125,000. Chemistry obtained on 07/02/2017: Sodium 136, potassium 4.1, chloride 105, carbon dioxide 22, BUN 30, creatinine 1.45, glucose 108, calcium 8.5, magnesium is 1.7. IMPRESSION AND PLAN: 1. GRAM-POSITIVE BEA BACTEREMIA. Will start vancomycin. Will repeat blood culture in the a.m. and follow. The patient has no known etiology. The patient does sustain some scrapes and bumps along the way working around his home, may be a skin source of this. Will await repeat cultures and continue vancomycin in the meantime. 2. CELLULITIS OF THE RIGHT LOWER EXTREMITY. Appears to be completely resolved. 3. ACUTE RENAL FAILURE. The patient denies any history of any kidney disease. The patient's creatinine did improve with hydration down to 1.45; however, the patient now has some mild edema. Will have to hold fluids for now. Will continue to hold HERMINIO for now. 4. HYPOKALEMIA. This is mild and was repleted. 5. MALNUTRITION. The patient's albumin was quite low at 2.8. The patient does have admit to some poor oral intake. I have liberalized the patient's diet and will follow. 6. PANCYTOPENIA. Relatively mild. Appears a little improved today. May be due to his infectious process. 7. BENIGN PROSTATIC HYPERPLASIA. Will continue Flomax. 8. HYPERTENSION. The patient's HERMINIO/ARB is on hold. Will use Norvasc in the meantime. 9. ATRIAL FIBRILLATION. The patient is currently in sinus rhythm and rate-controlled. Will continue Sotalol. DISPOSITION: The patient is a DO NOT RESUSCITATE/DO NOT INTUBATE. Pending patient's symptomatology and diagnostic findings, will reevaluate in the a.m. Time spent on this followup, including assessment, plan, physical examination, and patient education is 25 minutes. DICTATING PHYSICIAN: CYNTHIA GARDUNO NP [id number] PHY#: [id number] ID: [id number] JOB#: [id number] ACCT: [id number] cc: >
[2017-07-02] MEDS: VANCOMYCIN HCL 1,000 MG in DEXTROSE 5%-WATER 250 ML IV SCH (15:45)
[2017-07-02] MEDS: TAMSULOSIN HCL 0.4 MG CAP.SR.24H PO SCH (17:11)
[2017-07-02] MEDS: AMLODIPINE BESYLATE 5 MG TABLET PO SCH (22:10)
[2017-07-03 05:29] LABS: HEMATOCRIT 30.2 % (37.9-51.0); HEMOGLOBIN 10.6 g/dL (13.5-17.0); HGB HCT DIFFERENCE 1.6; MEAN CORPUSCULAR HEMOGLOBIN 33.5 pg (27.0-33.4); MEAN CORPUSCULAR VOLUME 96 fl (80-97); RED BLOOD COUNT 3.16 10^6/uL (4.35-5.55); RED CELL DISTRIBUTION WIDTH 12.6 % (11.5-14.0)
[2017-07-03 05:31] LABS: WHITE BLOOD COUNT 2.8 10^3/uL (4.0-10.5)
[2017-07-03 05:34] LABS: ANION GAP 9 (5-19); BLOOD UREA NITROGEN 26 mg/dL (7-20); CALCIUM 8.8 mg/dL (8.4-10.2); CARBON DIOXIDE 23 mmol/L (22-30); CHLORIDE 106 mmol/L (98-107); CREATININE RESULT 1.43 mg/dL (0.52-1.25); GLUCOSE 105 mg/dL (75-110); MAGNESIUM 1.9 mg/dL (1.6-2.3); POTASSIUM 4.4 mmol/L (3.6-5.0)
[2017-07-03] MEDS: FLUTICASONE NASAL SPRAY 50 MCG/SPRY 120 SPRAY/16 GM NASL SCH ×2 (10:19→21:59)
[2017-07-03] MEDS: AMLODIPINE BESYLATE 5 MG TABLET PO SCH ×2 (10:19→22:01)
[2017-07-03] MEDS: DOCUSATE SODIUM 100 MG CAPSULE PO SCH ×2 (10:19→17:28)
[2017-07-03] MEDS: CLOPIDOGREL BISULFATE 75 MG TABLET PO SCH (10:19)
[2017-07-03] MEDS: ACETAMINOPHEN 325 MG TABLET PO PRN (10:20)
[2017-07-03] MEDS: VANCOMYCIN HCL 1,000 MG in DEXTROSE 5%-WATER 250 ML IV SCH (16:17)
[2017-07-03] MEDS: OXYCODONE-ACETAMINOPHEN 5-325 MG TABLET PO PRN (17:27)
[2017-07-03] MEDS: TAMSULOSIN HCL 0.4 MG CAP.SR.24H PO SCH (17:28)
--- NOTE | 2017-07-03 17:35 | PDOC PROGRESS REPORT ---
Subjective Progress Note for:: 07/03/17 Subjective:: Family at bedside who provided information most of his symptoms. Frequent falls for the past several days. No recent instrumentation or Crisostomo catheter implant. Likewise there is no indwelling catheter in terms of Port-A-Cath or PICC line. Patient however has a permanent pacemaker. Cultures of the blood grew gram-positive cocci on 2 sets. Repeat so far is pending. No infiltrate on chest x-ray noted. No dysuria urgency or frequency. Urine culture remain negative. He does complain of pain on the right foot. He had fallen several times at home however. Physical Exam Vital Signs: Temp Pulse Resp BP Pulse Ox 99.3 F 88 19 154/61 H 99 07/03/17 14:47 07/03/17 14:47 07/03/17 14:47 07/03/17 14:47 07/03/17 14:47 Intake & Output 07/02/17 07/03/17 07/04/17 06:59 06:59 06:59 Intake Total 1418 1458 358 Output Total 1425 2250 200 Balance -7 -792 158 Weight 79.5 kg 77 kg General appearance: PRESENT: no acute distress, cooperative Head exam: PRESENT: normocephalic Eye exam: PRESENT: EOMI Mouth exam: PRESENT: moist, neck supple Neck exam: ABSENT: JVD Respiratory exam: PRESENT: clear to auscultation jaren. ABSENT: rhonchi, wheezes Cardiovascular exam: PRESENT: RRR. ABSENT: diastolic murmur, systolic murmur, tachycardia GI/Abdominal exam: PRESENT: soft. ABSENT: diminished bowel sounds, tenderness Extremities exam: PRESENT: pedal edema - Right more than the left, other - Right braider tender to touch and warm to touch compared to the left Neurological exam: PRESENT: alert, awake, oriented to situation Skin exam: PRESENT: dry, warm. ABSENT: cyanosis Results Laboratory Results: 07/03/17 05:08 07/03/17 05:08 07/03/17 07/03/17 05:08 05:08 WBC 2.8 L D RBC 3.16 L Hgb 10.6 L Hct 30.2 L MCV 96 MCH 33.5 H MCHC 35.0 RDW 12.6 Plt Count 138 L Sodium 138.0 Potassium 4.4 Chloride 106 Carbon Dioxide 23 Anion Gap 9 BUN 26 H Creatinine 1.43 H Est GFR ( Amer) 56 L Est GFR (Non-Af Amer) 47 L Glucose 105 Calcium 8.8 Magnesium 1.9 Impressions: Chest X-Ray 06/30/17 15:43 IMPRESSION: NO SIGNIFICANT RADIOGRAPHIC FINDING IN THE CHEST. Head CT 06/30/17 19:37 IMPRESSION: No acute intracranial findings. Assessment & Plan - Time Time Spent with patient: 25-34 minutes - Plan Summary Plan Summary: Obtain x-ray of the right foot. Follow repeat cultures. If positive underlying pacemaker implant may be infected as well. May eventually need to be transferred to a tertiary facility if that is the case. In the meantime continue current vancomycin and follow identity of the organism.
--- NOTE | 2017-07-03 19:46 | RADIOLOGY REPORT (SQ) ---
EXAM DESCRIPTION: FOOT RIGHT 2 VIEWS COMPLETED DATE/TIME: 07/03/2017 7:15 pm REASON FOR STUDY: pain and swelling D64.9 ANEMIA, UNSPECIFIED COMPARISON: None. NUMBER OF VIEWS: Three views. TECHNIQUE: AP, lateral and oblique radiographic images acquired of the right foot. LIMITATIONS: None. FINDINGS: MINERALIZATION: Normal. BONES: There are fractures involving the proximal phalanges of the 4th and 5th digits. A lucency is identified in the distal end of the 1st metatarsal which I cannot exclude as a fracture line. JOINTS: Hallux valgus is identified. There are subluxations at the level of the MTP joints. SOFT TISSUES: No soft tissue swelling. No foreign body. OTHER: Plantar spurring is identified. IMPRESSION: There are fractures involving the proximal phalanges of the 4th and 5th digits. The margo ency is identified in the distal end of the 1st metatarsal which I cannot exclude as a fracture line. Other findings as noted above TECHNICAL DOCUMENTATION: JOB ID: [id number] [employer]- All Rights Reserved
[2017-07-04] MEDS: CLOPIDOGREL BISULFATE 75 MG TABLET PO SCH (10:40)
[2017-07-04] MEDS: DOCUSATE SODIUM 100 MG CAPSULE PO SCH ×2 (10:40→17:05)
[2017-07-04] MEDS: AMLODIPINE BESYLATE 5 MG TABLET PO SCH ×2 (10:41→22:00)
[2017-07-04] MEDS: FLUTICASONE NASAL SPRAY 50 MCG/SPRY 120 SPRAY/16 GM NASL SCH ×2 (10:41→22:01)
--- NOTE | 2017-07-04 11:29 | PDOC PROGRESS REPORT ---
Subjective Progress Note for:: 07/04/17 Subjective:: The patient is resting in his bed. He states he still continues to feel quite weak. He states about 5 weeks ago that he developed increasing weakness and falls. He developed fevers and night sweats at this time. At the moment the patient has gram-positive bacteremia. The source is a little unclear but may be from a cellulitis in the right leg. The sensitivities and organism are not back as of the time of this dictation. Overall he states that he did have some chills overnight. He does not think he is running a fever today. He has had no chest pain or heart palpitations. He has had no nausea, vomiting or diarrhea. He states he is having normal bowel movements. He is not having any abdominal pain. He has no dysuria, frequency or hematuria. He states that he is having significant pain in his right foot. X-ray yesterday confirmed some fractured toes. He also is having some right calf tenderness. Physical Exam Vital Signs: Temp Pulse Resp BP Pulse Ox 98.1 F 77 16 162/65 H 99 07/04/17 07:20 07/04/17 07:20 07/04/17 07:20 07/04/17 07:20 07/04/17 07:20 Intake & Output 07/03/17 07/04/17 07/05/17 06:59 06:59 06:59 Intake Total 1458 1979 Output Total 2250 1225 Balance -792 754 Weight 77 kg 77.5 kg General appearance: PRESENT: no acute distress, cooperative, other - He has a tremor Head exam: PRESENT: atraumatic, normocephalic Mouth exam: PRESENT: moist, tongue midline Respiratory exam: PRESENT: clear to auscultation jaren. ABSENT: accessory muscle use, crackles, rhonchi, wheezes Cardiovascular exam: PRESENT: RRR, +S1, +S2, systolic murmur GI/Abdominal exam: PRESENT: normal bowel sounds, soft. ABSENT: organolmegaly, tenderness Rectal exam: PRESENT: deferred Extremities exam: PRESENT: calf tenderness - The patient has edema in his, other - The patient has edema in his right foot that extends all the way up above his knee. He is tender on the posterior calf. Neurological exam: PRESENT: alert, altered, awake, oriented to person, oriented to time, oriented to situation, CN II-XII grossly intact Psychiatric exam: PRESENT: appropriate affect Skin exam: PRESENT: dry, warm Results Laboratory Results: 07/03/17 05:08 07/03/17 05:08 Impressions: Chest X-Ray 06/30/17 15:43 IMPRESSION: NO SIGNIFICANT RADIOGRAPHIC FINDING IN THE CHEST. Head CT 06/30/17 19:37 IMPRESSION: No acute intracranial findings. Foot X-Ray 07/03/17 00:00 IMPRESSION: There are fractures involving the proximal phalanges of the 4th and 5th digits. The lucency is identified in the distal end of the 1st metatarsal which I cannot exclude as a fracture line. Other findings as noted above Assessment & Plan - Diagnosis (1) Gram-positive bacteremia Plan: The patient had 2 out of 2 blood cultures positive for gram-positive cocci in chains. Repeat blood cultures were obtained yesterday and are negative to date. We do not have the organism or the final sensitivity results. He currently is on IV vancomycin. This is day #3 of treatment. At this point the source is somewhat unclear. He did have a 2D echocardiogram performed. The results have not yet been read. (2) Cellulitis of right foot Is this a current diagnosis for this admission?: Yes Plan: It is a little unclear if this is a true cellulitis. Currently on day #3 of IV vancomycin. (3) Foot fracture, right Plan: The patient had an x-ray of his foot yesterday which revealed fractures in the fourth and fifth toe as well as a possible distal first metatarsal fracture. Going to get orthopedic surgery to see the patient. He may need a postop shoe or boot for ambulation. He does have significant swelling in the foot that extends up above his knee. He has calf tenderness. I am also going to obtain venous Dopplers of his lower extremities as well. (4) Acute on chronic renal failure Plan: Likely secondary to dehydration. Improving (5) Atrial fibrillation Qualifiers: Atrial fibrillation type: unspecified Qualified Code(s): I48.91 - Unspecified atrial fibrillation Is this a current diagnosis for this admission?: Yes Plan: Continue sotalol. Currently in a sinus rhythm and rate controlled. Currently not on anticoagulation I suspect due to his fall risk. (6) Pancytopenia Plan: Of undetermined significance at this point. We will get a CBC on the patient in the morning. (7) History of cardiac pacemaker in situ Is this a current diagnosis for this admission?: Yes Plan: No issues at this point. We will leave the patient on a remote monitor. (8) HTN (hypertension) Qualifiers: Hypertension type: essential hypertension Qualified Code(s): I10 - Essential (primary) hypertension Is this a current diagnosis for this admission?: Yes Plan: Adequately controlled on current regimen. (9) BPH (benign prostatic hyperplasia) Qualifiers: Lower urinary tract symptom presence: unspecified whether lower urinary tract symptoms present Qualified Code(s): N40.0 - Benign prostatic hyperplasia without lower urinary tract symptoms Is this a current diagnosis for this admission?: Yes Plan: Continue Flomax (10) Hypokalemia Plan: Repleted and resolved - Time Time Spent with patient: 25-34 minutes - Inpatient Certification Medical Necessity: Need Close Monitoring Due to Risk of Patient Decompensation - Inpatient hospitalization remains necessary. The patient has bacteremia of unknown source. Further workup and parenteral antibiotics are needed., Need for IV Antibiotics
[2017-07-04] MEDS: VANCOMYCIN HCL 1,000 MG in DEXTROSE 5%-WATER 250 ML IV SCH (16:59)
[2017-07-04] MEDS: TAMSULOSIN HCL 0.4 MG CAP.SR.24H PO SCH (17:05)
[2017-07-04] MEDS: OXYCODONE-ACETAMINOPHEN 5-325 MG TABLET PO PRN (17:05)
[2017-07-04] MEDS ORDERED: VANCOMYCIN HCL 1,000 MG in DEXTROSE 5%-WATER 250 ML IV ONE (20:00)
[2017-07-05 05:03] LABS: ABSOLUTE LYMPHOCYTES (AUTO) 0.7 10^3/uL (0.5-4.7); ABSOLUTE MONOCYTES (AUTO) 0.8 10^3/uL (0.1-1.4); ABSOLUTE NEUT (AUTO) 2.8 10^3/uL (1.7-8.2); BASOPHILS % (AUTO) 0.3 % (0-2); HEMATOCRIT 28.8 % (37.9-51.0); HEMOGLOBIN 9.6 g/dL (13.5-17.0); LYMPHOCYTES % (AUTO) 16.3 % (13-45); MEAN CORPUSCULAR HEMOGLOBIN 32.4 pg (27.0-33.4); MEAN CORPUSCULAR HGB CONC 33.4 g/dL (32.0-36.0); MEAN CORPUSCULAR VOLUME 97 fl (80-97); MONOCYTES % (AUTO) 18.8 % (3-13); RED BLOOD COUNT 2.97 10^6/uL (4.35-5.55); RED CELL DISTRIBUTION WIDTH 13.1 % (11.5-14.0); SEGMENTED NEUTROPHILS % (AUTO) 63.6 % (42-78); WHITE BLOOD COUNT 4.4 10^3/uL (4.0-10.5)
[2017-07-05 05:17] LABS: ANION GAP 7 (5-19); BLOOD UREA NITROGEN 26 mg/dL (7-20); CALCIUM 8.5 mg/dL (8.4-10.2); CARBON DIOXIDE 24 mmol/L (22-30); CHLORIDE 105 mmol/L (98-107); CREATININE RESULT 1.67 mg/dL (0.52-1.25); GLUCOSE 96 mg/dL (75-110); PHOSPHORUS 3.8 mg/dL (2.5-4.5); POTASSIUM 4.2 mmol/L (3.6-5.0); SODIUM 136.3 mmol/L (137-145)
[2017-07-05] MEDS: ACETAMINOPHEN 325 MG TABLET PO PRN (07:39)
[2017-07-05 08:42] VITALS: BP 146/59
[2017-07-05] MEDS: FLUTICASONE NASAL SPRAY 50 MCG/SPRY 120 SPRAY/16 GM NASL SCH (09:46)
[2017-07-05] MEDS: DOCUSATE SODIUM 100 MG CAPSULE PO SCH (09:47)
[2017-07-05] MEDS: AMLODIPINE BESYLATE 5 MG TABLET PO SCH (09:47)
[2017-07-05] MEDS: CLOPIDOGREL BISULFATE 75 MG TABLET PO SCH (09:47)
--- NOTE | 2017-07-05 10:40 | PDOC DISCHARGE SUMMARY ---
General - Admit/Disc Date/PCP Admission Date/Primary Care Provider: 07/01/17 09:07 disc jockey: Dr Servin in [place] Out[facility] Consultant: Dr. Phu Ulloa Discharge Date: 07/05/17 - Discharge Diagnosis (1) Gram-positive bacteremia Summary: The patient's blood cultures were positive in 2 out of 2 bottles for strep viridans. Currently he is receiving vancomycin. This is day #4 of treatment. The sensitivities from his blood cultures revealed that vancomycin has an HALLEY of 1. Repeat blood cultures are negative at 48 hours. The source of the bacteremia is somewhat unclear. The patient had some mild erythema in his right foot and leg at the time of admission. He had significant swelling but was found to have a toe fractures as well as a metatarsal fracture. He was treated initially for cellulitis although this was not real impressive. There are concerns that the patient may have subacute endocarditis. We do not have the capability of performing a transesophageal echocardiogram here at this facility. He has been accepted at [facility] where his primary hot dipper is agreed to perform a WEST. We certainly appreciate their assistance. (2) Cellulitis of right foot Is this a current diagnosis for this admission?: Yes Summary: Currently on IV vancomycin day #4. Again it was unclear whether this was a true cellulitis versus erythema and swelling from his fractures. (3) Foot fracture, right Summary: The patient has fractures in the fourth and fifth toes of his right foot. He also has a possible distal first metatarsal fracture. Will defer to the hospitalist at [facility] on whether to get orthopedic surgery to see the patient. He certainly needs possibly a postop shoe or boot so that he can ambulate with physical therapy so as not to lose his mobility. (4) Acute on chronic renal failure Summary: It was reported at admission that the patient had acute on chronic renal failure. Actually I have no outpatient records and I am not sure what his baseline creatinine is. Dr. Ulloa may have records in his system. I suspect the patient may be at his baseline. On the day of transfer his creatinine is 1.6 (5) Atrial fibrillation Is this a current diagnosis for this admission?: Yes Summary: Continue sotalol. He currently is in a sinus rhythm and rate controlled. Currently not on anticoagulant anticoagulation I suspect due to his fall risk. (6) Pancytopenia Summary: Improving. The patient's white blood cell count and platelet levels have normalized today. This was likely secondary to his acute illness. He does have a oracle engineer that he follows with in [place]. I do not have records from [facility] but I believe he has had issues with pancytopenia in the past. (7) History of cardiac pacemaker in situ Is this a current diagnosis for this admission?: Yes Summary: No issues during this hospitalization (8) HTN (hypertension) Is this a current diagnosis for this admission?: Yes Summary: Continue amlodipine 5 mg daily and losartan 50 mg every 12 hours. (9) BPH (benign prostatic hyperplasia) Is this a current diagnosis for this admission?: Yes Summary: Continue Flomax 0.8 mg p.o. daily - Additional Information Resuscitation Status: Full Code Discharge Diet: Cardiac Discharge Activity: Activity As Tolerated Home Medications: Brimonidine Tartrate [Alphagan P] 1 drop OU Q8 06/30/17 Clopidogrel Bisulfate [Plavix 75 mg Tablet] 75 mg PO DAILY 06/30/17 Fluticasone Propionate [Flonase Nasal [place] 50 Mcg/[place] 16 gm] 1 spray NASL Q12 06/30/17 Furosemide [Lasix 20 mg Tablet] 20 mg PO DAILY 06/30/17 Losartan Potassium [Cozaar 50 mg Tablet] 50 mg PO Q12 06/30/17 Sotalol HCl [Betapace 80 mg Tablet] 80 mg PO DAILY 06/30/17 Tamsulosin HCl [Flomax 0.4 mg Cap.sr] 0.8 mg PO DAILY 06/30/17 History of Present Illness History of Present Illness: ALY PENG is a 89 year old male who presented to the emergency room with increasing falls, weakness and fever. Hospital Course Hospital Course: The patient is an extremely pleasant and active 89-year-old male. His past medical history is significant for atrial fibrillation, status post permanent pacemaker, chronic kidney disease, benign prostatic hypertrophy and hypertension. His hot dipper is Dr. Ulloa in [facility]. He presented to the emergency room with generalized weakness which is been worsening, multiple falls and fevers. 6 weeks prior to admission the patient states that he began getting weak. He started having low-grade fever and chills at home and started having some falls. Over the past several weeks his weakness worsened and his fevers continued to get higher. He had become so weak that he was unable to stand up and he was brought to the emergency room for further evaluation. He had a fall prior to at home the day of admission. In the emergency room he was found to have fever. His right foot was swollen and it extended up his leg about to the knee. There was some very mild erythema as well. X-ray revealed fracture of the fourth and fifth toes as well as a possible fracture of the distal first metatarsal. He was admitted to the hospital and started on IV antibiotic therapy for a possible cellulitis. Blood cultures obtained at the time of admission were ultimately positive for strep viridans. He did have a 2D echocardiogram performed at this facility however this was 2 days ago and has not been read due to the on-call hot dipper being out on sick leave. It is felt at this point that the patient needs to have a transesophageal echocardiogram performed and we do not have that capability here at this facility. I did speak to his primary hot dipper today who is agreeable to performing a WEST at [facility]. He requested admission under the hospitalist service so they could treat his multiple medical issues. Dr. Telma Alexander has graciously accepted the patient in transfer and in fact he already has a bed available. He will be transition to [facility] today in stable condition. Of note I will defer to Dr. Alexander on whether to obtain orthopedic evaluation. Physical Exam Vital Signs: Temp Pulse Resp BP Pulse Ox 98.3 F 79 18 146/59 H 97 07/05/17 07:18 07/05/17 07:18 07/05/17 07:18 07/05/17 07:18 07/05/17 07:18 Intake & Output 07/04/17 07/05/17 07/06/17 06:59 06:59 06:59 Intake Total 1979 1609 Output Total 1225 1450 Balance 754 159 Weight 77.5 kg 78.2 kg General appearance: PRESENT: no acute distress, cooperative, well-developed Head exam: PRESENT: atraumatic, normocephalic Mouth exam: PRESENT: moist, tongue midline Respiratory exam: PRESENT: clear to auscultation jaren. ABSENT: rales, rhonchi, wheezes Cardiovascular exam: PRESENT: RRR. ABSENT: diastolic murmur, rubs, systolic murmur GI/Abdominal exam: PRESENT: normal bowel sounds, soft. ABSENT: distended, guarding, mass, organolmegaly, rebound, tenderness Rectal exam: PRESENT: deferred Extremities exam: PRESENT: pedal edema, other - The patient has swelling in his right foot that extends into the pretibial area. There is some very mild erythema.. ABSENT: calf tenderness, clubbing Neurological exam: PRESENT: alert, awake, oriented to person, oriented to place , oriented to time, oriented to situation, CN II-XII grossly intact. ABSENT: motor sensory deficit Psychiatric exam: PRESENT: appropriate affect, normal mood. ABSENT: homicidal ideation, suicidal ideation Skin exam: PRESENT: dry, intact, warm. ABSENT: cyanosis, rash Results Laboratory Results: 07/05/17 04:28 07/05/17 04:28 07/05/17 07/05/17 04:28 04:28 WBC 4.4 RBC 2.97 L Hgb 9.6 L Hct 28.8 L MCV 97 MCH 32.4 MCHC 33.4 RDW 13.1 Plt Count 165 Seg Neutrophils % 63.6 Lymphocytes % 16.3 Monocytes % 18.8 H Eosinophils % 1.0 Basophils % 0.3 Absolute Neutrophils 2.8 Absolute Lymphocytes 0.7 Absolute Monocytes 0.8 Absolute Eosinophils 0.0 Absolute Basophils 0.0 Sodium 136.3 L Potassium 4.2 Chloride 105 Carbon Dioxide 24 Anion Gap 7 BUN 26 H Creatinine 1.67 H Est GFR ( Amer) 47 L Est GFR (Non-Af Amer) 39 L Glucose 96 Calcium 8.5 Phosphorus 3.8 Magnesium 2.0 Impressions: Chest X-Ray 06/30/17 15:43 IMPRESSION: NO SIGNIFICANT RADIOGRAPHIC FINDING IN THE CHEST. Head CT 06/30/17 19:37 IMPRESSION: No acute intracranial findings. Foot X-Ray 07/03/17 00:00 IMPRESSION: There are fractures involving the proximal phalanges of the 4th and 5th digits. The lucency is identified in the distal end of the 1st metatarsal which I cannot exclude as a fracture line. Other findings as noted above Qualifiers PATEINT BEING DISCHARGED WITH ANY OF THE FOLLOWING DIAGNOSIS?: No Plan Discharge Plan: The patient will be transferred to [facility] for consideration of a transesophageal echocardiogram this morning in stable condition. Time Spent: Greater than 30 Minutes
--- NOTE | 2017-07-07 10:03 | XCELERA REPORT ---
[address] [address] Transthoracic Echocardiogram Report Name: ALY PENG Age: 89 yrs Gender: Male : 1925 Patient Status: Inpatient Patient Location: [address] [place] [address] Study Date: 07/04/2017 08:18 AM Height: 70 in Weight: 169 lb BSA: 1.9 m2 Procedure: A complete two-dimensional transthoracic echocardiogram was performed (2D, M-mode, spectral and color flow Doppler). The study was technically difficult with many images being suboptimal in quality. Reason For Study: Positive blood culture check for vegetations. Ordering Physician: ROBERT MYERS Performed By: Stacey Da Silva Interpretation Summary The study was technically difficult with many images being suboptimal in quality. The left ventricular ejection fraction is within normal limits. There is mild concentric left ventricular hypertrophy. Doppler measurements suggest pseudonormalized left ventricular relaxation, which is associated with grade II/IV or mild to moderate diastolic dysfunction The left ventricle is grossly normal size. Regional wall motion abnormalities cannot be excluded due to limited visualization. The right ventricle is mildly dilated. The right ventricle appears to be hypertrophied The right ventricular systolic function is normal. The right atrium is mildly dilated. Borderline left atrial enlargement. There is no mitral valve stenosis. There is a mild to moderate amount of mitral regurgitation There is no aortic valve stenosis There is a mild amount of aortic regurgitation There is a mild amount of tricuspid regurgitation There is mild pulmonary hypertension by echo Right ventricular systolic pressure is estimated to be elevated at 30- 40mmHg. The aortic root is not well visualized but is probably normal size. The inferior vena cava was not well visualized There is no pericardial effusion. No definite vegetations noted but cannot completely rule it out. Consider WEST if clinically indicated. MMode/2D Measurements & Calculations RVDd: 3.6 cm LVIDd: 4.5 cm FS: 37.4 % Ao root diam: 2.8 cm IVSd: 0.70 cm LVIDs: 2.8 cm EDV(Teich): 90.7 ml LVPWd: 0.69 cm ESV(Teich): 29.4 ml Ao root area: 6.2 cm2 EF(Teich): 67.6 % LA dimension: 3.1 cm Doppler Measurements & Calculations MV E max vero: MV P1/2t max vero: Ao V2 max: AI max vero: 58.2 cm/sec 58.7 cm/sec 173.8 cm/sec 479.6 cm/sec MV A max vero: MV P1/2t: 57.9 msec Ao max PG: AI max P.3 cm/sec 12.1 mmHg 92.0 mmHg MV E/A: 0.63 MVA(P1/2t): 3.8 cm2 AI dec slope: MV dec slope: 297.0 cm/sec2 354.4 cm/sec2 AI P1/2t: 396.4 msec LV V1 max PG: PA V2 max: PI end-d vero: TR max vero: 6.9 mmHg 115.5 cm/sec 119.4 cm/sec 278.7 cm/sec LV V1 max: PA max P.3 mmHg TR max P.3 cm/sec 31.2 mmHg Left Ventricle The left ventricle is grossly normal size. There is mild concentric left ventricular hypertrophy. The left ventricular ejection fraction is within normal limits. Doppler measurements suggest pseudonormalized left ventricular relaxation, which is associated with grade II/IV or mild to moderate diastolic dysfunction. Regional wall motion abnormalities cannot be excluded due to limited visualization. Right Ventricle The right ventricle is mildly dilated. The right ventricle appears to be hypertrophied. The right ventricular systolic function is normal. Atria The right atrium is mildly dilated. Borderline left atrial enlargement. Interarterial septum not well visualized and not well dopplered. Cannot comment on ASD/PFO presence. Mitral Valve There is mild mitral annular calcification. There is no mitral valve stenosis. There is a mild to moderate amount of mitral regurgitation. Aortic Valve The aortic valve is mildly calcified. There is no aortic valve stenosis. There is a mild amount of aortic regurgitation. Tricuspid Valve The tricuspid valve is not well visualized secondary to technical limitations. There is no tricuspid stenosis. There is a mild amount of tricuspid regurgitation. There is mild pulmonary hypertension by echo. Right ventricular systolic pressure is estimated to be elevated at 30- 40mmHg. Pulmonic Valve The pulmonic valve is not well visualized. Great Vessels The aortic root is not well visualized but is probably normal size. The inferior vena cava was not well visualized. Effusions There is no pericardial effusion. Incidental Findings No definite vegetations noted but cannot completely rule it out. Consider WEST if clinically indicated. : ROBERT MYERS > Jose Holland
== END 2017-07-05 11:47 | disposition short-term general hospital (02) | DRG 682 ==
LOC: ER 14:54 → EH 19:45 → UNDOADMOB 19:45 → EH 20:57 → 4S 21:35 → OBSVTOIN 07-01 09:07 → 3W 07-02 00:50
PROVIDERS: ADMIT Family Medicine; ATTEND Family Medicine
DX: N17.9 Acute kidney failure, unspecified (principal); I33.9 Acute and subacute endocarditis, unspecified; R78.81 Bacteremia; L03.115 Cellulitis of right lower limb; E46 Unspecified protein-calorie malnutrition; D61.818 Other pancytopenia; B95.4 Other streptococcus as the cause of diseases classified elsewhere; Z66 Do not resuscitate; E78.00 Pure hypercholesterolemia, unspecified; R53.1 Weakness; N40.0 Benign prostatic hyperplasia without lower urinary tract symptoms; D64.9 Anemia, unspecified; E86.0 Dehydration; I12.9 Hypertensive chronic kidney disease with stage 1 through stage 4 chronic kidney disease, or unspecified chronic kidney disease; N18.3 Chronic kidney disease, stage 3 (moderate); I48.91 Unspecified atrial fibrillation; E87.6 Hypokalemia; Z96.659 Presence of unspecified artificial knee joint; S92.911A Unspecified fracture of right toe(s), initial encounter for closed fracture; S92.311A Displaced fracture of first metatarsal bone, right foot, initial encounter for closed fracture; W19.XXXA Unspecified fall, initial encounter; Z91.81 History of falling; Z95.0 Presence of cardiac pacemaker; Z68.24 Body mass index [BMI] 24.0-24.9, adult; Z79.899 Other long term (current) drug therapy; Z88.2 Allergy status to sulfonamides; Z88.8 Allergy status to other drugs, medicaments and biological substances; Y92.009 Unspecified place in unspecified non-institutional (private) residence as the place of occurrence of the external cause
CPT/HCPCS: 36415; 70450; 71020; 80048; 80053; 81001; 82803; 83605; 83735; 84100; 85025; 85027; 85610; 87040; 87077; 87086; 87186; 93005; 93010; 93306; 96365; 99285; G0378; G8978-GP; G8979-GP; J0690; J0696; J3370; J3490; J7030; J7060